=== PATIENT | male | born 1965 | race Caucasian/White ===

== ENCOUNTER 2016-12-15 07:05 | Day surgery (SDC) | payer BC ==
[2016-12-15] MEDS ORDERED: fentaNYL 100 MCG/2 ML SDV ONE (07:26)
[2016-12-15] MEDS ORDERED: Midazolam 1 MG/ML 2 ML SDV ONE (07:26)
[2016-12-15] MEDS ORDERED: Propofol 200 MG/20 ML SDV ONE (07:26)
[2016-12-15] MEDS ORDERED: Dextrose 5%-Lactated Ringers 1,000 ML IV SCH (08:00)
[2016-12-15 09:58] VITALS: BP 146/79
--- NOTE | 2016-12-22 11:38 | OR ---
DATE OF PROCEDURE: 12/15/2016 PREOPERATIVE DIAGNOSIS: Probable diabetic gastroparesis. POSTOPERATIVE DIAGNOSIS: Diabetic gastroparesis associated with large gastric bezoar. OPERATIVE PROCEDURE: Upper GI endoscopy with biopsies of antrum for CLOtest. ANESTHESIA: IV sedation. INDICATION FOR PROCEDURE: This is a 50-year-old male with longstanding type 2 diabetes, presenting here with progressive problems with epigastric discomfort and fullness. He was empirically started on a course of Reglan and is to undergo an upper GI endoscopy at this time to evaluate the extent of his gastroparesis. Potential risks of the procedure including bleeding and perforation were discussed, and the patient wishes to proceed. DETAILS OF PROCEDURE: The patient was taken to the operating room and placed in a left lateral decubitus position. IV sedation was administered, after which the upper GI endoscope was passed orally through the length of the esophagus. In the stomach, retroflexion view of the fundus and thereafter through the pyloric channel and into the proximal duodenum. The findings include normal upper and mid esophagus. At the EG junction, no significant hiatal hernia was noted. Upon entering the stomach, there was a fairly large bezoar present, containing old undigested food, associated with some mild redness in the antrum, at which point biopsies were obtained there for a CLOtest for H. pylori. There was no obstruction at the pylorus with the scope easily being passed through that area into the duodenum at junction of 3rd, 4th portions where it was unremarkable. Biopsies were obtained from the antrum and sent for CLOtest for H. pylori. Minimal bleeding at the biopsy sites was seen, and the procedure then concluded. The patient was taken to the recovery room in satisfactory condition. At this point, the patient appears to have advanced diabetic gastroparesis. These have failed trial of medical management, and would probably, at this point, benefit from a laparoscopic total gastrectomy with Francy-en-Y reconstruction. This will get rid of his gastroparesis problems as well as likely improve his diabetic status. Potential risks were reviewed with the patient, and we will see him back in December, as he is aiming to have the procedure done sometime in January or February. Vance Yancey MD /[id number]
== END 2016-12-15 10:07 | disposition home or self-care (01) ==
LOC: JP.SDS 07:05
PROVIDERS: ATTEND Surgery
DX: K31.84 Gastroparesis (principal); E11.43 Type 2 diabetes mellitus with diabetic autonomic (poly)neuropathy; T18.2XXA Foreign body in stomach, initial encounter; E11.22 Type 2 diabetes mellitus with diabetic chronic kidney disease; I12.9 Hypertensive chronic kidney disease with stage 1 through stage 4 chronic kidney disease, or unspecified chronic kidney disease; N18.9 Chronic kidney disease, unspecified; K21.9 Gastro-esophageal reflux disease without esophagitis
CPT/HCPCS: 43239; 82962; 87081; J2250; J2704; J3010; J7042

== ENCOUNTER 2017-02-24 07:15 | Inpatient (IN) | payer BC ==
[2017-02-24] MEDS ORDERED: FENTANYL PATCH ASK TOP SCH (08:00)
[2017-02-24] MEDS ORDERED: Acetaminophen 500 MG Tab PO ONE (08:15)
[2017-02-24] MEDS ORDERED: Celecoxib 200 MG Cap PO ONE (08:15)
[2017-02-24] MEDS ORDERED: Scopolamine 1.5 MG Transdermal Patch TRDERM PRN (08:15)
[2017-02-24] MEDS ORDERED: Gabapentin 300 MG Cap PO ONE (08:15)
[2017-02-24] MEDS ORDERED: Neostigmine Methylsulfate 1 MG/ML 5 ML Syringe ONE (08:48)
[2017-02-24] MEDS ORDERED: Midazolam 1 MG/ML 2 ML SDV ONE (08:48)
[2017-02-24] MEDS ORDERED: fentaNYL 250 MCG/5 ML SDV ONE (08:48)
[2017-02-24] MEDS ORDERED: Lactated Ringers 1,000 ML ONE ×2 (08:48→14:19)
[2017-02-24] MEDS ORDERED: Dexamethasone 4 MG/ML SDV ONE (08:48)
[2017-02-24] MEDS ORDERED: Propofol 200 MG/20 ML SDV ONE (08:48)
[2017-02-24] MEDS ORDERED: Rocuronium 50 MG/5 ML Vial ONE (08:48)
[2017-02-24] MEDS ORDERED: Ondansetron 4 MG/2 ML SDV ONE (08:48)
[2017-02-24] MEDS ORDERED: Succinylcholine/Normal Saline 200 MG/10 ML Syringe ONE (08:48)
[2017-02-24] MEDS: Dextrose 5%-Lactated Ringers 1,000 ML IV SCH (09:08)
[2017-02-24] MEDS ORDERED: Ropivacaine 59 ML, Dexamethasone 8 MG, EPINEPHrine 0.4 MG, Sodium Chloride 0.9% 18.6 ML NERVRT SCH ×4 (09:30)
[2017-02-24] MEDS ORDERED: cefOXitin 2 GM in Sodium Chloride 0.9% 50 ML IV ONE (09:30)
[2017-02-24] MEDS ORDERED: Ketamine 500 MG/5 ML MDV IV SCH (09:30)
[2017-02-24] MEDS ORDERED: cefOXitin 2 GM in Sodium Chloride 0.9% 100 ML IV ONE (09:30)
[2017-02-24] MEDS ORDERED: Lidocaine 2% 100 MG/5 ML Syringe IVPUSH ONE (09:30)
[2017-02-24] MEDS ORDERED: cefOXitin 2 GM Vial ONE (11:10)
[2017-02-24] MEDS ORDERED: Glucagon,Human Recombinant 1 MG Vial IM PRN (15:24)
[2017-02-24] MEDS ORDERED: 50% Dextrose in Water 50 ML Syringe IVPUSH PRN (15:24)
[2017-02-24] MEDS: Insulin Aspart 100 Units/ML 3 ML Pen SUBCUT PRN (15:30)
[2017-02-24] MEDS ORDERED: Labetalol 20 MG/4 ML Syringe IVPUSH PRN (16:00)
[2017-02-24] MEDS ORDERED: SCOPOLAMINE PATCH ASK TOP SCH (16:00)
[2017-02-24] MEDS ORDERED: Ondansetron 4 MG/2 ML SDV IVPUSH PRN (16:00)
[2017-02-24] MEDS ORDERED: Celecoxib 200 MG Cap PO SCH (16:00)
[2017-02-24] MEDS ORDERED: hydrOXYzine HCl 50 MG/ML SDV IM PRN (16:00)
[2017-02-24] MEDS ORDERED: MVI, Adult with Vitamin K 10 ML, Thiamine 200 MG, Chromium/Copper/Mang/Selen/Zn 1 ML in... IV SCH ×4 (16:00)
[2017-02-24] MEDS: Lidocaine 0.4%/D5W 2 GM/500 ML BAG IV SCH (16:50)
[2017-02-24] MEDS: Acetaminophen Soln 650 MG/20.3 ML UD Cup PO SCH ×2 (16:52→22:03)
[2017-02-24] MEDS: Pantoprazole 40 MG Vial IVPUSH SCH (16:54)
[2017-02-24] MEDS: Heparin Sodium 5,000 Units/ML Vial SUBCUT SCH (18:23)
[2017-02-24] MEDS: cefOXitin 2 GM in Sodium Chloride 0.9% 50 ML IV SCH (18:23)
[2017-02-24] MEDS ORDERED: HYDROmorphone 1 MG/ML Syringe IVPUSH PRN (19:55)
[2017-02-24] MEDS ORDERED: Insulin Detemir 100 Units/ML 3 ML Pen SUBCUT ONE ×2 (21:00→21:42)
[2017-02-24] MEDS ORDERED: Insulin Aspart 100 Units/ML 3 ML Pen SUBCUT ONE (21:41)
[2017-02-24] MEDS: Gabapentin 250 MG/5 ML Solution ML 470 ML Bottle PO SCH (22:03)
[2017-02-25] MEDS: cefOXitin 2 GM in Sodium Chloride 0.9% 50 ML IV SCH ×2 (00:38→05:00)
[2017-02-25] MEDS: Dextrose 5%-Lactated Ringers 1,000 ML IV SCH ×3 (00:38→23:56)
[2017-02-25] MEDS: Heparin Sodium 5,000 Units/ML Vial SUBCUT SCH ×3 (02:14→17:01)
[2017-02-25] MEDS ORDERED: Iohexol 647 MG/ML 50 ML SDV PO SCH (03:30)
[2017-02-25] MEDS: Insulin Aspart 100 Units/ML 3 ML Pen SUBCUT PRN ×4 (04:52→22:11)
[2017-02-25] MEDS: Acetaminophen Soln 650 MG/20.3 ML UD Cup PO SCH ×4 (04:52→21:29)
[2017-02-25] MEDS: Lidocaine 0.4%/D5W 2 GM/500 ML BAG IV SCH (05:17)
[2017-02-25] MEDS: Gabapentin 250 MG/5 ML Solution ML 470 ML Bottle PO SCH ×3 (08:53→21:29)
[2017-02-25] MEDS: Insulin Detemir 100 Units/ML 3 ML Pen SUBCUT SCH ×2 (09:53→21:27)
[2017-02-25] MEDS ORDERED: Metoclopramide 10 MG/2 ML SDV IVPUSH PRN (11:03)
[2017-02-25] MEDS ORDERED: diphenhydrAMINE 50 MG/ML SDV IV PRN (11:04)
[2017-02-25] MEDS: Metoprolol Succinate 50 MG Tab.ER PO SCH ×2 (11:07→21:29)
--- NOTE | 2017-02-25 12:19 | PN ---
DATE OF SERVICE: 02/25/2017 The patient has been afebrile with stable vital signs. The blood pressure is a little bit high but we started back on his Toprol XL this morning. Blood sugars have been somewhat high, and we will start some Januvia today and then give him Lantus 30 units b.i.d. His previous dose was 40 units b.i.d. preoperatively. Otherwise, his creatinine did bump up to 3.1 although his urine output is very very good. Given this, we will discontinue the and Celebrex both of which might have some toxic affects on the renal function. Otherwise, continue the gabapentin and Tylenol and the lidocaine infusion for pain control. He will go up to a step 2 diet today and restart the aspirin and metoprolol that he was on preoperatively the chlorthalidone at this point may not need to be restarted. That is a thiazide type diuretic which the patient probably may not need. Vance Yancey MD /[id number]
[2017-02-25] MEDS: Magnesium Sulfate/Water 2 GM in Premix Bag 1 BAG IV SCH ×2 (14:12→19:43)
[2017-02-25] MEDS: Pantoprazole 40 MG Vial IVPUSH SCH (16:56)
[2017-02-25] MEDS: MVI, Adult with Vitamin K 10 ML, Thiamine 200 MG, Chromium/Copper/Mang/Selen/Zn 1 ML in... IV SCH ×4 (17:10)
[2017-02-26] MEDS: Acetaminophen Soln 650 MG/20.3 ML UD Cup PO SCH ×4 (03:01→21:59)
[2017-02-26] MEDS: Magnesium Sulfate/Water 2 GM in Premix Bag 1 BAG IV SCH ×4 (03:01→19:55)
[2017-02-26] MEDS: Heparin Sodium 5,000 Units/ML Vial SUBCUT SCH ×3 (03:01→18:47)
[2017-02-26] MEDS: Aspirin 81 MG Tab.EC PO SCH (08:12)
[2017-02-26] MEDS: Metoprolol Succinate 50 MG Tab.ER PO SCH ×2 (08:12→20:11)
[2017-02-26] MEDS: Gabapentin 250 MG/5 ML Solution ML 470 ML Bottle PO SCH ×3 (08:13→20:08)
[2017-02-26] MEDS ORDERED: Lactated Ringers 1,000 ML IV SCH (08:45)
[2017-02-26] MEDS ORDERED: Cyanocobalamin (Vitamin B12) 1,000 MCG/ML SDV IM ONE (09:00)
--- NOTE | 2017-02-26 12:24 | PN ---
DATE OF SERVICE: 02/26/2017 SUBJECTIVE: Roque's creatinine this morning was 2.7 and blood sugar was 191. He states his pain is controlled. He has been up ambulating frequently. His oral intake was 2500 and urine output was 3300. NIRAV drain put out 70 mL of a light pink serous drainage. REVIEW OF SYSTEMS: Remainder of review of systems negative for any pertinent positives and negatives. OBJECTIVE: GENERAL: Roque Ames is a 51-year-old male. He is alert and orientated. SKIN: Warm and dry. Color good. VITAL SIGNS: TPR 96.6, 57, 18, blood pressure 165/82. HEENT: Negative. NECK: Supple. HEART: Regular rate and rhythm. LUNGS: Clear. ABDOMEN: Incisions look good. NIRAV drain intact. Abdominal binder is on. EXTREMITIES: Without peripheral edema. ASSESSMENT: Laparoscopic partial gastrectomy with Francy-en-Y gastrojejunostomy, small bowel resection, liver biopsy, repair of diaphragmatic hernia, and excision of mediastinal lipoma for diabetic gastroparesis refractory to medical management, foreshortened mesentery requiring small bowel resection to allow jejunostomy mobility sufficient to complete gastrojejunostomy, para-diaphragmatic hernia, and mediastinal lipoma on 02/24/2017. PLAN: 1. Change IV liquids to D5LR at 100 mL/hour. 2. Check CBC, CMP, and mag phos in a.m. 3. Dressing off, may shower. 4. We will evaluate p.r.n. or in a.m. Emilia Hidalgo PA-C /[id number]
[2017-02-26] MEDS: MVI, Adult with Vitamin K 10 ML, Thiamine 200 MG, Chromium/Copper/Mang/Selen/Zn 1 ML in... IV SCH ×8 (14:43→15:15)
[2017-02-26] MEDS: Pantoprazole 40 MG Tab.CR PO SCH (14:43)
[2017-02-26] MEDS: Insulin Aspart 100 Units/ML 3 ML Pen SUBCUT PRN (16:37)
[2017-02-26] MEDS ORDERED: Insulin Detemir 100 Units/ML 3 ML Pen SUBCUT ONE (21:00)
[2017-02-27] MEDS: Magnesium Sulfate/Water 2 GM in Premix Bag 1 BAG IV SCH ×2 (02:08→08:03)
[2017-02-27] MEDS: Heparin Sodium 5,000 Units/ML Vial SUBCUT SCH ×2 (02:10→09:45)
[2017-02-27] MEDS: Acetaminophen Soln 650 MG/20.3 ML UD Cup PO SCH ×2 (05:30→09:10)
[2017-02-27 07:23] VITALS: BP 154/82
[2017-02-27] MEDS: Pantoprazole 40 MG Tab.CR PO SCH (07:42)
[2017-02-27] MEDS: Aspirin 81 MG Tab.EC PO SCH (09:09)
[2017-02-27] MEDS: Metoprolol Succinate 50 MG Tab.ER PO SCH (09:10)
[2017-02-27] MEDS: Pneumococcal Polyvalent-23 Vaccine 0.5 ML SDV IM ONE (09:18)
[2017-02-27] MEDS: Gabapentin 250 MG/5 ML Solution ML 470 ML Bottle PO SCH (09:34)
[2017-02-27] MEDS ORDERED: Pneumococcal Polyvalent-23 Vaccine 0.5 ML SDV IM ONE (10:00)
--- NOTE | 2017-02-27 10:07 | DISCH ---
ADMISSION DIAGNOSES: Morbid obesity and diabetes type 1, uncontrolled. DISCHARGE DIAGNOSES: Laparoscopic partial gastrectomy with Francy-en-Y gastrojejunostomy, small bowel resection, liver biopsy, repair of diaphragmatic hernia, and excision of mediastinal lipoma for diabetic gastroparesis refractory to medical management, foreshortened mesentery requiring small bowel resection to allow jejunostomy mobility, sufficient to complete gastrojejunostomy, paraesophageal hernia, and mediastinal lipoma; on 02/24/2017. HISTORY: Roque Ames is a 51-year-old male with longstanding history of diabetes type 2 and severe diabetic gastroparesis. After preoperative evaluation and discussion of possible risks and possible complications, he wished to proceed with surgical procedure. HOSPITAL COURSE: Roque had a surgery on 02/24/2017. He had no operative complications. On postop day #1, he was started on a step-2 gastric bypass diet. His activity was good. His oral intake was adequate. His blood sugars were managed appropriately. On postop day #2, he continued to have his blood sugars monitored. His creatinine did increase from 2.4 up to 3.1 and on date of discharge, it was 2.4. His activity has been good. He received dietary instruction on day of discharge, and he was able to be discharged to home without any complications on 02/27/2017. PHYSICAL EXAMINATION: GENERAL: Roque Ames is a 51-year-old male. VITAL SIGNS: Height is 5 feet 11 inches. Weight is 254 pounds. TPR is 97.8, 58, 18, and blood pressure 154/82. HEENT: Negative. NECK: Supple. HEART: Regular rate and rhythm. LUNGS: Clear. ABDOMEN: Incisions look good. 4x4s over NIRAV drain site. EXTREMITIES: Without peripheral edema. DISPOSITION: Discharged to home. CONDITION: Stable and improving. FOLLOWUP APPOINTMENT: On 03/06/2017, at 9 a.m., with Emilia Hidalgo PA-C. DISCHARGE MEDICATIONS: Home medications: 1. Tylenol 650 mg per 20.3 mL cup, one q.6 hours for 2 weeks. 2. Vitamin B12 1000 mcg oral sublingual, #100, 11 refills. 3. NovoLog 0-9 units subcu 4 times a day as needed, pending sliding scale blood sugars. 4. Lantus 30 units subcu once daily. 5. Multivitamin chewable one twice daily, #100, 11 refills. 6. Januvia 100 mg oral daily, #30, and 5 refills. 7. He is to resume his home medications of aspirin 81 mg daily, chlorthalidone 12.5 mg oral daily. He is to resume taking the metoprolol succinate 50 mg oral twice daily. DISCHARGE DIET: Drink 8 to 10 glasses of water a day. Step-2 gastric bypass diet with no cereal. ACTIVITY: No lifting greater than 10 pounds for 2 weeks. Other activity, walk 6 to 8 times daily, short distances. Shower/bathing, may shower. Wear abdominal binder for 2 weeks and then as tolerated. DISCHARGE INSTRUCTIONS: Notify provider if any fever, nausea, or vomiting. Wound incision care, keep site clean and dry. Special Instructions: 1. Check blood sugars 4 times a day and as needed, bring results of blood sugar readings to clinic appointments. Call the clinic Surgery Department with blood sugars daily [phone]. 2. Use incentive spirometer 10 times every hour while awake for 2 weeks and sliding scale per java core developer recommendations.
--- NOTE | 2017-02-27 10:09 | CR ---
UGI wo KUB HISTORY: eval RNY GBP FINDINGS: After administration of oral contrast, upright views were obtained. Post operative changes gastric bypass. Surgical drains in place. No evidence for leak. Contrast passes freely into proxima l small bowel loops. IMPRESSION: No evidence for leak or obstruction.
[2017-02-28] MEDS: Pneumococcal Polyvalent-23 Vaccine 0.5 ML SDV IM ONE (16:34)
--- NOTE | 2017-03-02 12:30 | OR ---
DATE OF PROCEDURE: 02/24/2017 PREOPERATIVE DIAGNOSIS: Diabetic gastroparesis, refractory to medical management. POSTOPERATIVE DIAGNOSES: 1. Diabetic gastroparesis, refractory to medical management. 2. Foreshortened mesentery requiring small bowel resection to allow jejunojejunostomy, sufficient mobility to complete gastrojejunostomy. 3. Paraesophageal diaphragmatic hernia. 4. Mediastinal lipoma. 5. Marked hepatomegaly with fatty infiltration of the liver. OPERATIVE PROCEDURE: 1. Diagnostic laparoscopy with: a. Partial gastrectomy with Francy-en-Y gastrojejunostomy (07464). b. Small bowel resection (27442). c. Ethan-Cut needle liver biopsy (31834). d. Repair of paraesophageal diaphragmatic hernia (16957). e. Excision of mediastinal lipoma (72169). ANESTHESIA: General. ORE FIELDER: Emilia Hidalgo PA-C and MADELEINE Escobar. INDICATIONS FOR PROCEDURE: This is a 51-year-old with longstanding type 2 diabetes mellitus, presenting with problems with gastroparesis, that has been refractory to medical management. He has tried Reglan, erythromycin, as well as anti-bezoar diet all of which have been unsuccessful. A gastric emptying study did confirm an impaired gastric emptying by nuclear medicine exam. The plan is to proceed with a diagnostic laparoscopy, laparotomy if necessary, and proximal gastrectomy with a Francy-en-Y gastrojejunostomy to the level of the stomach just immediately below the esophagogastric junction. Potential risks of the procedure including bleeding, infection, leaks from various GI tract closures, problems with bowel obstruction over time as well as possibility of cardiopulmonary, septic, or hemorrhagic complications leading to were all discussed, and the patient wishes to proceed. DETAILS OF PROCEDURE: The patient was taken to the operating room. After general endotracheal anesthesia was induced, was placed in a lithotomy position. Godinez catheter was inserted along with the gastrointestinal balloon catheter, and the abdomen prepped and draped, 15 cm inferior, 5 cm left of xiphoid process, a transverse incision was made. The peritoneal cavity was entered under direct vision with an Optiview trocar and inflated to 15 mmHg pressure with CO2. Laparoscope was then reinserted and no underlying trocar insertion site injuries were seen. Following this, 5 additional trocars were placed across the upper mid abdomen and general exploration was undertaken. Likely due to the patient's longstanding diabetes as well as obesity, he was noted to have a markedly fatty infiltrated liver. Ethan-Cut biopsies were obtained of the liver at this time for histologic evaluation. Minimal bleeding from the biopsy sites was controlled with electrocautery. At this point, attention was then taken to the stomach. As the liver was retracted, the stomach was noted to be quite edematous and boggy, particularly in the area of the gastric cardia. The peritoneum along the medial aspect of the gastric cardia was then incised with Harmonic scalpel and this dissection continued up through the level of the gastroesophageal junction. Using two firings of MARYANNE black loads, given the marked thickening of the tissue at the level of esophagogastric junction, the stomach was divided at a point just immediately below the esophagogastric junction. This point was picked as the quality of the tissue for the subsequent anastomosis would be superior to what would result from the stomach itself. Once this division was obtained, a portion of the boggy edematous stomach, which appeared to have some deserosalization during the course of dissection, as well as being quite thinned out, which if the patient developed postop gastric distention would be at a high risk of leaking. This portion of the stomach was then resected with firings of the MARYANNE black and purple loads and that specimen delivered from the field. At this point,the patient had been noted to have a paraesophageal diaphragmatic hernia. This was dissected out and reflected downward. During the course of the dissection, a fairly large mediastinal lipoma was encountered, which was excised. The paraesophageal hernia was then repaired with some posteriorly located crural stitches of 0 Ethibond, reinforced with PTFE pledgets along with one additional stitch anteriorly. Attention was then taken to formation of the Francy limb. The small bowel was traced out 40 cm distal to the ligament of Treitz where it was divided with a MARYANNE stapler. Small bowel was then traced out an additional 125 cm where the [id number] enteroenterostomy was accomplished with internal firing of the Endo-MARYANNE 60 mm stapler. The common opening was then closed transversely with the MARYANNE stapler as well and the angles of the anastomosis and mesenteric defect approximated with some 0 Ethibond stitch along with fibrin sealant. The divided end of the Francy limb was brought up in an antecolic manner and came up to the level of the esophagogastric junction without tension. It should be noted that the initial evaluation of the small bowel mesentery showed it to be quite thickened and a roughly 8 cm segment of the small bowel on what would be the pancreatic or duodenal limb was resected. This allowed more mesenteric mobility in terms of the jejunojejunostomy, which then did allow the bowel to be brought up to the EG junction without tension. At this point, the anvil of a 25 mm EEA stapler was attached to Brewton sump type tube. The latter was brought down through the mouth and taken out through a small opening in the divided end of the esophagogastric junction and the anvil likewise pulled down into that location. The divided end of the Francy limb was then opened and main body of the EEA stapler passed several centimeters into the lumen of the small bowel brought up, the anvil united with it, thus creating the gastrojejunostomy. Upon removal of the stapler, double donuts of mucosa were noted within it. Small bowel was closed off with a vascular staple line. Gastrojejunostomy was then reinforced with some 3-0 Vicryl seromuscular stitch along with fibrin sealant. Leak test was accomplished with injection of 120 mL of air into the distal esophagus while the gastrojejunostomy was submerged in an antibiotic-containing saline solution. No leaks were identified. Single Jose Miguel-Arnold drain was then placed through the left lateral trocar site and positioned adjacent to the gastrojejunostomy. The trocars were then sequentially removed and peritoneal cavity deflated. Incisions were closed with 4-0 Vicryl skin stitch affixed with 4-0 Vicryl stitch as well. The patient was taken to the recovery room in satisfactory condition. Physician assistant professor in family studies, Emilia Hidalgo, played an essential role in assisting in this case, helping to position the patient, retract structures as needed, as well as suturing and cutting the sutures as indicated. Her presence improved the patient safety and decreased operative time. Vance Yancey MD /[id number]
== END 2017-02-27 11:07 | disposition home or self-care (01) | DRG 403 ==
LOC: EDSTATUS 07:15 → JP.SDS 07:32 → JP.MS 07:32 → JP.2SS 14:30
PROVIDERS: ADMIT Surgery; ATTEND Surgery
PROC: 0DB84ZX Excision of Small Intestine, Percutaneous Endoscopic Approach, Diagnostic (ICD-10-PCS; principal; 2017-02-24)
PROC: 0FB04ZX Excision of Liver, Percutaneous Endoscopic Approach, Diagnostic (ICD-10-PCS; principal; 2017-02-24)
PROC: 0BQR4ZZ (ICD-10-PCS; principal; 2017-02-24)
PROC: 0BQS4ZZ (ICD-10-PCS; principal; 2017-02-24)
PROC: 0WBC4ZX Excision of Mediastinum, Percutaneous Endoscopic Approach, Diagnostic (ICD-10-PCS; principal; 2017-02-24)
PROC: 0D164ZA Bypass Stomach to Jejunum, Percutaneous Endoscopic Approach (ICD-10-PCS; principal; 2017-02-24)
DX: E66.01 Morbid (severe) obesity due to excess calories (principal); E11.43 Type 2 diabetes mellitus with diabetic autonomic (poly)neuropathy; Z68.36 Body mass index [BMI] 36.0-36.9, adult; E11.65 Type 2 diabetes mellitus with hyperglycemia; K31.84 Gastroparesis; E11.42 Type 2 diabetes mellitus with diabetic polyneuropathy; K21.9 Gastro-esophageal reflux disease without esophagitis; K44.9 Diaphragmatic hernia without obstruction or gangrene; E11.22 Type 2 diabetes mellitus with diabetic chronic kidney disease; I12.9 Hypertensive chronic kidney disease with stage 1 through stage 4 chronic kidney disease, or unspecified chronic kidney disease; N18.9 Chronic kidney disease, unspecified; Z79.82 Long term (current) use of aspirin; D17.4 Benign lipomatous neoplasm of intrathoracic organs; Z79.4 Long term (current) use of insulin; R16.0 Hepatomegaly, not elsewhere classified; K76.0 Fatty (change of) liver, not elsewhere classified
CPT/HCPCS: 36415; 74240; 74240-26; 80048; 80053; 82962; 83036; 83735; 83880; 84100; 85027; 86850; 86900; 86901; 88304; 88307; 88313; 90732; 93005; 94762; A9270-GY; C9113; J0171; J0694; J1100; J1170; J1644; J2001; J2250; J2405; J2704; J2795; J3010; J3410; J3411; J3420; J3475; J7030; J7040; J7042; J7050; J7120; Q9967

== ENCOUNTER 2021-04-28 18:40 | Emergency (ER) | payer BC, OTHER ==
[2021-04-28 19:23] VITALS: BP 149/81; PULSE 84
[2021-04-28] MEDS: Diphtheria,Pertussis(Acell),Tetanus Vaccine 0.5 ML Syringe IM ONE (20:03)
[2021-04-28] MEDS: Bacitracin Oint 1 GM U/D Packet TOP ONE (20:06)
--- NOTE | 2021-04-28 21:07 | EDM.PDOC ---
ED HPI GENERAL MEDICAL PROBLEM - General Chief Complaint: Laceration Stated Complaint: LACERATION TO RT WRIST Time Seen by Provider: 04/28/21 19:04 Source of Information: Reports: Patient, RN History Limitations: Reports: No Limitations - History of Present Illness Onset: Today Duration: Hour(s): Location: Reports: Upper Extremity, Right Quality: Reports: Ache, Burning Severity: Mild Improves with: Reports: Rest Worsens with: Reports: Movement Context: Reports: Other (cut on piece of tin at work) Associated Symptoms: Reports: No Other Symptoms Treatments STEAM HAND: Reports: Dressing(s) (applied bandage) Right Wrist Pain Score (Numeric/FACES): 2 - Related Data Allergies Allergy/AdvReac Type Severity Reaction Status Date / Time No Known Allergies Allergy Verified 02/24/17 08:01 Home Meds: Home Meds NK [No Known Home Meds] 04/28/21 [History] Past Medical History HEENT History: Reports: Glaucoma Cardiovascular History: Reports: Hypertension Gastrointestinal History: Reports: GERD, Other (See Below) Other Gastrointestinal History: gastroparesis Genitourinary History: Reports: Other (See Below) Other Genitourinary History: chronic kidney disease with proteinuria, hyperuricemia Musculoskeletal History: Reports: Gout, Other (See Below) Other Musculoskeletal History: osteomylitis Neurological History: Reports: Neuropathy, Peripheral Endocrine/Metabolic History: Reports: Diabetes, Type II, Obesity/BMI 30+ Dermatologic History: Reports: Other (See Below) Other Dermatologic History: dry skin right knee - Infectious Disease History Infectious Disease History: Reports: Chicken Pox - Past Surgical History HEENT Surgical History: Reports: Other (See Below) Other HEENT Surgeries/Procedures: laser eye procedure to cauterize bleeders Cardiovascular Surgical History: Reports: None GI Surgical History: Reports: Bariatric Procedure, Cholecystectomy Male Surgical History: Reports: Vasectomy Endocrine Surgical History: Reports: None Musculoskeletal Surgical History: Reports: Amputation, Other (See Below) Other Musculoskeletal Surgeries/Procedures:: 4 th toe amputation bilateral Social & Family History - Tobacco Use Tobacco Use Status *Q: Never Tobacco User - Caffeine Use Caffeine Use: Reports: Coffee, Energy Drinks, Soda - Recreational Drug Use Recreational Drug Use: No - Living Situation & Occupation Living situation: Reports: Occupation: Employed ED ROS GENERAL - Review of Systems Review Of Systems: See Below Constitutional: Reports: Other (right wrist laceration) HEENT: Reports: No Symptoms Respiratory: Reports: No Symptoms Cardiovascular: Reports: No Symptoms Endocrine: Reports: No Symptoms GI/Abdominal: Reports: No Symptoms : Reports: No Symptoms Musculoskeletal: Reports: Other (right wrist pain) Skin: Reports: Wound (laceration of right wrist) Neurological: Reports: No Symptoms Psychiatric: Reports: No Symptoms Hematologic/Lymphatic: Reports: No Symptoms ED EXAM, SKIN/RASH Exam: See Below Exam Limited By: Other (neat and well groomed, in work clothes) General Appearance: Alert, WD/WN, No Apparent Distress Respiratory/Chest: No Respiratory Distress Peripheral Pulses: 2+: Radial (L), Radial (R) Extremities: Normal Capillary Refill, Other (laceration right wrist) Neurological: Alert, Oriented, CN II-XII Intact, Normal Cognition, Normal Gait, Normal Reflexes, No Motor/Sensory Deficits Psychiatric: Normal Affect, Normal Mood Skin: Warm, Dry, Normal Color, No Rash, Wound/Incision (laceration of right wrist) Location, Skin: Upper Extremity, Right Associated features: Tenderness, Weeping (bleeding control with bandage) Lymphatic: No Adenopathy ED SKIN PROCEDURES - Laceration/Wound Repair Right Anterior Wrist Appearance: Subcutaneous, Irregular, Clean Distal NVT: Neuro & Vascular Intact, Other (tendon injury noted) Anesthetic Type: Local Local Anesthesia - Lidocaine (Xylocaine): 1% Plain Local Anesthetic Volume: 4cc Skin Prep: Chlorhexidine (Hibiciens), Saline Saline Irrigation (cc's): 40 Exploration/Debridement/Repair: Wound Explored, In a Bloodless Field Closed with: Sutures Lac/Wound length In cm: 2.5 Suture Size: 4-0 # of Sutures: 6 Suture Type: Prolene, Interrupted, Simple Tetanus Status Addressed: Yes (Tdap given at today ER visit) Complications: No Progress/Comments: 2044 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 Reviewed with Provider-hand had full range of motion to fingers, thumb and wrist. 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 strength strong and equal in all fingers including thumb. no deficit noted or any loss of function in hand and wrist. advised; splint, IV Ancef 2 gram now, PO Keflex, suture laceration closed, follow up with Primary Care for wound check. reviewed with Mr. Ames, no loss of function with tendon injury, consulted with orthopedics, discussed plan of care. -patient declines referral to Hand surgeon- due to no loss of function of wrist, hand, fingers and thumb -agrees with plan of care. Course - Vital Signs Last Recorded V/S: Last Vital Signs Temp 97.9 F 04/28/21 19:21 Pulse 84 04/28/21 19:21 Resp 14 04/28/21 19:21 BP 149/81 H 04/28/21 19:21 Pulse Ox 98 04/28/21 19:21 - Orders/Labs/Meds Meds: Medications Discontinued Medications Generic Name Dose Route Start Last Admin Trade Name Freq PRN Reason Stop Dose Admin Bacitracin 1 dose 04/28/21 19:43 04/28/21 20:06 Bacitracin Oint 1 Gm U/D Packet TOP 04/28/21 19:44 1 dose ONETIME ONE Administration Cefazolin Sodium Confirm 04/28/21 21:05 04/28/21 21:23 Cefazolin 1 Gm Vial Administered 04/28/21 21:06 Not Given Dose 2 gm .ROUTE .STK-MED ONE Diphtheria/Tetanus/Acell Pertussis 0.5 ml 04/28/21 19:43 04/28/21 20:03 Diphtheria,Pertussis(Acell),Tetanus Vaccine 0.5 Ml Syringe IM 04/28/21 19:44 0.5 ml .ONCE ONE Administration Cefazolin Sodium 2 gm/ Sodium 50 mls @ 100 mls/hr 04/28/21 20:45 04/28/21 21:23 Chloride IV 04/28/21 21:14 100 mls/hr ONETIME ONE Administration Sodium Chloride Confirm 04/28/21 21:06 04/28/21 21:26 Normal Saline Administered 04/28/21 21:07 100 mls/hr Dose Administration 50 mls @ as directed .ROUTE .STK-MED ONE Lidocaine HCl 5 ml 04/28/21 19:43 04/28/21 20:06 Lidocaine 1% 5 Ml Sdv INJECT 04/28/21 19:44 5 ml ONETIME ONE Administration - Re-Assessments/Exams Free Text/Narrative Re-Assessment/Exam: 04/28/21 23:05 laceration repair ortho consult reviewed plan of care with Mr. Ames agrees with plan of care Departure - Departure Time of Disposition: 21:02 Disposition: Home, Self-Care 01 Condition: Good Clinical Impression: Tetanus-diphtheria vaccination administered at current visit Laceration of wrist, left, with tendon involvement Qualifiers: Encounter type: initial encounter Qualified Code(s): S61.512A - Laceration without foreign body of left wrist, initial encounter Clinical Impression: (Ruled Out): Refuses tetanus, diphtheria, and acellular pertussis (Tdap) vaccination - Discharge Information *PRESCRIPTION DRUG MONITORING PROGRAM REVIEWED*: Not Applicable Instructions: Laceration Care, Adult, [id number], Pain Medicine Instructions, [id number] Referrals: Roque Pro MD [Primary Care Provider] - Forms: ED Department Discharge Care Plan Goals: laceration repair of left wrist with tendon involvement -IV Ancef 2 gram in ER -home medication- Keflex 500 mg by mouth 4 times a day -order hydrocodone one every 3 to 4 hours as need for pain #6 -wrist splint wear for 7 days to 10 days -sutures removal in 10 days -laceration care- daily bandage changes til healed -follow up with Primary Care for recheck in 3 days -monitor for signs of infection-increase redness, pain, drainage, not healing return to ER for any signs of infection or any concerns. Sepsis Event Note (ED) - Evaluation Sepsis Screening Result: No Definite Risk - Focused Exam Vital Signs: Vital Signs Temp Pulse Resp BP Pulse Ox 04/28/21 19:21 97.9 F 84 14 149/81 H 98 - Problem List & Annotations (1) Laceration of wrist, left, with tendon involvement SNOMED Code(s): 55698682 Code(s): S61.512A - LACERATION WITHOUT FOREIGN BODY OF LEFT WRIST, INIT ENCNTR; S66.922A - LACERAT UNSP MUSC/FASC/TEND AT WRS/HND LV, LEFT HAND, INIT Status: Acute Priority: High Qualifiers: Encounter type: initial encounter Qualified Code(s): S61.512A - Laceration without foreign body of left wrist, initial encounter; S66.922A - Laceration of unspecified muscle, fascia and tendon at wrist and hand level, left hand, initial encounter - Problem List Review Problem List Initiated/Reviewed/Updated: Yes - Assessment/Plan Assessment:: laceration repair of left wrist with tendon involvement -Tdap given in ER -IV Ancef 2 gram in ER -home medication- Keflex 500 mg by mouth 4 times a day -order hydrocodone one every 3 to 4 hours as need for pain #6 -wrist splint wear for 7 days to 10 days -sutures removal in 10 days -laceration care- daily bandage changes til healed -follow up with Primary Care for recheck in 3 days -monitor for signs of infection-increase redness, pain, drainage, not healing return to ER for any signs of infection or any concerns.
[2021-04-28] MEDS: ceFAZolin 1 GM Vial ONE (21:23)
[2021-04-28] MEDS: ceFAZolin 2 GM in Sodium Chloride 0.9% 50 ML IV ONE (21:23)
[2021-04-28] MEDS: Sodium Chloride 0.9% 50 ML ONE (21:26)
== END 2021-04-28 21:58 | disposition home or self-care (01) ==
LOC: JP.ED 18:40
DX: S61.511A Laceration without foreign body of right wrist, initial encounter (principal); Z23 Encounter for immunization; I12.9 Hypertensive chronic kidney disease with stage 1 through stage 4 chronic kidney disease, or unspecified chronic kidney disease; N18.9 Chronic kidney disease, unspecified; E11.22 Type 2 diabetes mellitus with diabetic chronic kidney disease; E11.42 Type 2 diabetes mellitus with diabetic polyneuropathy; E11.43 Type 2 diabetes mellitus with diabetic autonomic (poly)neuropathy; K31.84 Gastroparesis; E66.9 Obesity, unspecified; Z68.23 Body mass index [BMI] 23.0-23.9, adult; W26.8XXA Contact with other sharp object(s), not elsewhere classified, initial encounter; Y99.0 Civilian activity done for income or pay
CPT/HCPCS: 12001; 90471; 90715; 96365; 99282; J0690

== ENCOUNTER 2022-08-08 07:06 | Day surgery (SDC) | payer BC, MEDICARE ==
[2022-08-08] MEDS ORDERED: Midazolam 1 MG/ML 2 ML SDV ONE (07:17)
[2022-08-08] MEDS ORDERED: fentaNYL 50 MCG/ML SDV ONE (07:17)
[2022-08-08] MEDS ORDERED: Propofol 200 MG/20 ML SDV ONE (07:17)
[2022-08-08] MEDS ORDERED: Lactated Ringers 1,000 ML IV SCH (07:30)
[2022-08-08 10:17] VITALS: BP 137/70; PULSE 68
== END 2022-08-08 10:05 | disposition home or self-care (01) ==
LOC: JP.SDS 07:06
PROVIDERS: ATTEND Student in an Organized Health Care Education/Training Program
DX: Z12.11 Encounter for screening for malignant neoplasm of colon (principal); K57.30 Diverticulosis of large intestine without perforation or abscess without bleeding; I10 Essential (primary) hypertension; E11.9 Type 2 diabetes mellitus without complications; Z79.899 Other long term (current) drug therapy
CPT/HCPCS: 36415; 45378; 80048; J2250; J2704; J3010; J7120

== ENCOUNTER 2024-07-16 09:52 | Emergency (ER) | payer BC, MEDICARE ==
[2024-07-16 10:25] LABS: BASOPHILS ABSOLUTE AUTO 0.05 K/uL (0.00-0.10); BASOPHILS PERCENT AUTO 0.5 % (0.1-1.3); EOSINOPHILS ABSOLUTE AUTO 0.08 K/uL (0.00-0.40); EOSINOPHILS PERCENT AUTO 0.8 % (0.0-5.4); HEMATOCRIT 33.7 % (38.4-49.7); HEMOGLOBIN 11.5 g/dL (12.9-16.9); IMMATURE GRAN PERCENT AUTO 0.2 % (0.0-0.7); LYMPHOCYTES ABSOLUTE AUTO 0.46 K/uL (0.8-3.3); LYMPHOCYTES PERCENT AUTO 4.7 % (11.4-47.7); MEAN CORPUSCULAR HGB CONC 34.1 g/dL (31.6-35.5); MONOCYTES ABSOLUTE AUTO 0.62 K/uL (0.20-0.90); MONOCYTES PERCENT AUTO 6.3 % (3.3-12.6); NEUTROPHILS ABSOLUTE AUTO 8.66 K/uL (1.0-7.6); NEUTROPHILS PERCENT AUTO 87.5 % (40.0-78.1); PLATELET COUNT,PLT 177 K/uL (130-375); RED BLOOD CELL COUNT 3.83 M/uL (4.14-5.76); WHITE BLOOD CELL COUNT,WBC 9.9 K/uL (3.2-11.0)
[2024-07-16 10:26] LABS: IMMATURE GRAN ABSOLUTE AUTO 0.02 K/uL (0.00-0.23)
[2024-07-16 10:45] LABS: ALANINE AMINOTRANSFERASE,ALT 30 U/L (12-78); ALBUMIN 3.9 g/dL (3.4-5.0); ALKALINE PHOSPHATASE 267 U/L (46-116); ASPARTATE AMNIOTRANSFERASE,AST 20 U/L (15-37); BILIRUBIN TOTAL 1.3 mg/dL (0.2-1.0); CALCIUM 9.2 mg/dL (8.5-10.1); CARBON DIOXIDE,CO2 24 mmol/L (21-32); CHLORIDE,CL 98 mmol/L (100-108); EST CRCL DRUG DOSING (CG) 7.56 mL/min; ESTIMATED GFR 5 mL/min (>60); GLUCOSE RANDOM 173 mg/dL (74-106); POTASSIUM,K 5.5 mmol/L (3.6-5.2); SODIUM,NA 137 mmol/L (140-148)
[2024-07-16 10:47] LABS: ANION GAP 20.5 mmol/L (5.0-14.0)
[2024-07-16 10:49] LABS: BLOOD UREA NITROGEN,BUN 78 mg/dL (7-18)
[2024-07-16 12:47] VITALS: BP 189/104; PULSE 86
== END 2024-07-16 13:20 ==
LOC: JP.ED 09:52
DX: I13.0 Hypertensive heart and chronic kidney disease with heart failure and stage 1 through stage 4 chronic kidney disease, or unspecified chronic kidney disease (principal); I50.9 Heart failure, unspecified; N18.9 Chronic kidney disease, unspecified; K21.9 Gastro-esophageal reflux disease without esophagitis; E78.00 Pure hypercholesterolemia, unspecified; E11.22 Type 2 diabetes mellitus with diabetic chronic kidney disease; E11.40 Type 2 diabetes mellitus with diabetic neuropathy, unspecified; F17.210 Nicotine dependence, cigarettes, uncomplicated; Z86.16 Personal history of COVID-19; Z79.82 Long term (current) use of aspirin; Z79.899 Other long term (current) drug therapy
CPT/HCPCS: 36415; 71046; 71046-26; 80053; 85025; 99284; 99285

== ENCOUNTER 2025-06-05 14:34 | Emergency (ER) | payer MEDICARE, BC | END 2025-06-05 15:30 | disposition left against medical advice (07) | LOC: JP.ED 14:34 | DX: Z53.21 Procedure and treatment not carried out due to patient leaving prior to being seen by health care provider (principal) ==